=== PATIENT | female | born 1960 | race African-American/Black ===

== ENCOUNTER 2024-01-08 11:34 | Emergency (ER) | payer BC, OTHER ==
[2024-01-08 11:38] VITALS: BP 136/90; PULSE 100; RESP 16; TEMP 98.9; BMI 30.9
[2024-01-08] MEDS ORDERED: ACETAMINOPHEN 325 MG TABLET (FP) ONE (11:56)
[2024-01-08] MEDS ORDERED: LIDOCAINE 5% TOPICAL PATCH ONE ×2 (11:56→12:11)
[2024-01-08] MEDS: ACETAMINOPHEN 325 MG TABLET (FP) PO ONE (12:00)
[2024-01-08] MEDS: LIDOCAINE 5% TOPICAL PATCH TP ONE ×2 (12:00→12:10)
[2024-01-08] MEDS ORDERED: LIDOCAINE PATCH REMOVAL MC ONE ×3 (22:00)
== END 2024-01-08 12:15 | disposition home or self-care (01) ==
LOC: FER 11:34
DX: M54.2 Cervicalgia (principal); R11.0 Nausea
CPT/HCPCS: 99283-25